=== PATIENT | female | born 1955 | race Asian ===

== ENCOUNTER 2017-12-02 09:20 | Day surgery (SDC) | payer OTHER ==
[2017-12-02] MEDS ORDERED: MIDAZOLAM 1 MG/ML 2 ML INJ ×2 (14:14)
[2017-12-02] MEDS ORDERED: FENTAnyl 50 MCG/ML VIAL (14:14)
== END 2017-12-02 14:59 | disposition home or self-care (01) ==
LOC: GIL 09:20
DX: Z12.11 Encounter for screening for malignant neoplasm of colon (principal)
CPT/HCPCS: 45378